=== PATIENT | male | born 1985 | race African-American/Black ===

== ENCOUNTER 2017-10-09 08:02 | Emergency (ER) | payer SELFPAY ==
[~2017-10-09] VITALS: Ht 170.2 cm; Wt 85.0 kg
[2017-10-09 09:11] LABS: ALBUMIN 4.8 g/dL (3.2-4.8); CHLORIDE 107 mEq/L (99-109); POTASSIUM 2.9 mEq/L (3.7-5.4); SODIUM 146 mEq/L (136-147)
[2017-10-09 09:13] LABS: GLUCOSE 139 mg/dL (70-99)
[2017-10-09 09:15] LABS: TOTAL BILIRUBIN 0.5 mg/dL (0.0-1.0)
[2017-10-09 09:17] LABS: ALKALINE PHOSPHATASE 73 IU/L (3-129); CREATININE 1.2 mg/dL (0.6-1.3); GFR ESTIMATE (CALCULATED) > 59 mL/min/ (58.99-99999)
[2017-10-09 09:18] LABS: UREA NITROGEN (BUN) 16 mg/dL (9-23)
[2017-10-09 09:19] LABS: AST (GOT) 42 IU/L (2-34)
[2017-10-09 09:20] LABS: ALT (GPT) 40 IU/L (3-49); LIPASE 9 U/L (1.0-51.0)
[2017-10-09 09:48] LABS: HEMATOCRIT 45.5 % (38.0-50.0); HEMOGLOBIN 15.6 G/DL (12.5-16.6); MCH 31.6 PG (29.0-34.0); MCHC 34.3 G/DL (30.0-36.0); MCV 92.3 FL (86-99); PLAT.SUFFICIENCY ADEQUATE; PLATELET COUNT 172 K/uL (156-360); RBC DIS.WIDTH-CV 13.4 % (11.8-14.6); RBC DIS.WIDTH-SD 45.5 % (39-53); RED BLOOD COUNT 4.93 M/uL (4.00-5.50); WHITE BLOOD COUNT 14.8 K/uL (4.1-10.2)
[2017-10-09] MEDS ORDERED: ZOFRAN ODT4 MG PO (09:52)
[2017-10-09] MEDS ORDERED: K-DUR20 MEQ PO (09:53)
[2017-10-09 10:22] VITALS: BP 132/86
== END 2017-10-09 10:24 | disposition home or self-care (01) ==
LOC: EME 08:02
DX: R11.10 Vomiting, unspecified (principal); R19.7 Diarrhea, unspecified; E87.6 Hypokalemia; F17.200 Nicotine dependence, unspecified, uncomplicated
CPT/HCPCS: 80053; 81003; 83690; 85027; 99281; 99285; J1885; J2405; J3480; J7030